=== PATIENT | female | born 1965 | race Caucasian/White ===

== ENCOUNTER 2019-07-20 07:18 | Day surgery (SDC) | payer BC ==
[2019-07-20] MEDS ORDERED: Propofol 200 MG/20 ML SDV IV ONE (07:19)
[2019-07-20] MEDS ORDERED: Lactated Ringers 1,000 ML IV SCH (07:30)
[2019-07-20] MEDS ORDERED: Sodium Chloride 0.9% 10 ML Syringe FLUSH PRN (07:30)
--- NOTE | 2019-07-20 09:34 | PCM.OPNOTE ---
- General Post-Op/Procedure Note Date of Surgery/Procedure: 07/20/19 Operative Procedure(s): c scope with biopsy Findings: descending colon polyp Pre Op Diagnosis: screening Post-Op Diagnosis: colon polyp Anesthesia Technique: MAC Primary Surgeon: Andrew Roldan Anesthesia Provider: Isabel Bill Pathology: colon polyp Complications: None Condition: Good Free Text/Narrative:: see dictation
--- NOTE | 2019-07-20 14:47 | OR ---
DATE OF OPERATION: 07/20/2019 SURGEON: Andrew Roldan MD PROCEDURE PERFORMED: Colonoscopy with cold forceps biopsy. PREOPERATIVE DIAGNOSIS: Need for screening colonoscopy. POSTOPERATIVE DIAGNOSIS: Descending colon polyp. INDICATIONS FOR PROCEDURE: This is a 53-year-old white female who is due for followup screening colonoscopy. She is without complaints. She does have a family history of colon polyps. DESCRIPTION OF PROCEDURE: After an excellent IV sedation was administered, digital rectal exam was performed. No marked abnormality was noted. Flexible colonoscope was inserted and advanced to cecum. Prep was excellent. Following findings were noted. Ascending colon, unremarkable. Transverse colon, unremarkable. Descending colon at the area of the splenic flexure, polypoid lesion biopsied with cold biopsy forceps and sent for permanent. Sigmoid and rectum, unremarkable. Results by letter. /[id number] /MODL
== END 2019-07-20 10:31 | disposition home or self-care (01) ==
LOC: FB.SDS 07:18
PROVIDERS: ATTEND Surgery
DX: Z12.11 Encounter for screening for malignant neoplasm of colon (principal); K51.40 Inflammatory polyps of colon without complications; K42.9 Umbilical hernia without obstruction or gangrene; D64.9 Anemia, unspecified; Z80.0 Family history of malignant neoplasm of digestive organs
CPT/HCPCS: 81025; 88305; J2704; J7120